=== PATIENT | male | born 1985 | race Two or more races ===

== ENCOUNTER 2021-02-25 17:51 | Emergency (ER) | payer OTHER ==
[~2021-02-25] VITALS: Ht 172.7 cm; Wt 85.1 kg
--- NOTE | 2021-02-25 18:10 | NUR ---
ELIGIBILITY CONSULTANT: EKG IN TRIAGE.
--- NOTE | 2021-02-25 18:24 | NUR ---
ASSUMED CARE OF PATIENT. PATIENT REPORTS HEADACHES X3 WEEKS, PT ALSO HAS HAD SOME DIZZINESS X1 WEEK. VS STABLE. CALL LIGHT IN PLACE. FAMILY AT BEDSIDE. WILL CONTINUE TO MONITOR.
[2021-02-25] MEDS ORDERED: DIPHENHYDRAMINE 50 MG/ML, 1ML IVPush ONE (19:30)
[2021-02-25] MEDS ORDERED: METOCLOPRAMIDE 5 MG/ML, 2ML IVPush ONE (19:30)
[2021-02-25] MEDS ORDERED: SODIUM CHLORIDE 0.9% 1,000ML IVBOLUS ONE (19:30)
--- NOTE | 2021-02-25 19:41 | NUR ---
PT WENT TO CT
[2021-02-25] MEDS ORDERED: METOCLOPRAMIDE 5 MG/ML, 2ML ONE (19:50)
[2021-02-25] MEDS ORDERED: DIPHENHYDRAMINE 50 MG/ML, 1ML ONE (19:50)
--- NOTE | 2021-02-25 20:44 | NUR ---
REPORT FROM SYLVIA DOTSON.
--- NOTE | 2021-02-25 20:52 | NUR ---
BEDSIDE REPORT GIVEN TO MAURI KAUFFMAN
[2021-02-25 21:28] VITALS: BP 12/83
== END 2021-02-25 21:41 | disposition home or self-care (01) ==
LOC: ED 20:56
DX: G44.011 Episodic cluster headache, intractable (principal); R11.0 Nausea
CPT/HCPCS: 70450; 93005; 96361; 96374; 96375; 99284; J1200; J2765; J7030